=== PATIENT | female | born 1955 | race Caucasian/White ===

== ENCOUNTER 2019-06-29 08:18 | Day surgery (SDC) | payer OTHER ==
[2019-06-29] MEDS ORDERED: Ringers Lactate 1,000 ML IV ONE (08:53)
[2019-06-29] MEDS ORDERED: MIDAZOLAM HCL 2 MG/2 ML INJ ONE ×2 (09:06→09:25)
[2019-06-29] MEDS ORDERED: FENTANYL CITR 100 MCG/2 ML ONE (09:25)
[2019-06-29] MEDS ORDERED: LIDOCAINE 1% MPF 5 ML VIAL ONE (09:25)
[2019-06-29] MEDS ORDERED: propofoL 200 MG/20 ML VIAL IV ONE (09:25)
[2019-06-29] MEDS: CEFAZOLIN/SWI 1gm 1 GM/10 ML SYR ONE ×2 (09:30→09:40)
[2019-06-29] MEDS ORDERED: ONDANSETRON 4 MG/2 ML VIAL ONE (09:54)
[2019-06-29] MEDS ORDERED: KETOROLAC 30 MG/ML INJ ONE (09:54)
--- NOTE | 2019-06-29 10:03 | P.BOP ---
Preoperative diagnosis: infected back subQ mass , cellulitis, abscess Postoperative diagnosis: same Primary procedure: Excisional biopsy infected back subQ mass 6x6cm with deep abscess drainage Estimated blood loss: <10cc Specimen: mass and pus culture Findings: mass and pus Anesthesia: General Complications: None Drain(s): Other (wet to dry) Transferred to: Recovery Room Condition: Good
[2019-06-29 14:08] VITALS: TEMP 97.6
[2019-06-29 14:12] VITALS: BP 128/60; O2SAT 96
--- NOTE | 2019-06-29 15:41 | DS ---
Date of Discharge: 06/29/2019 Diagnosis: Infected back subcutaneous mass with cellulitis and abscess. Procedure: Excisional biopsy of infected back subcutaneous mass with deep abscess drainage. Disposition: Home. Activity: As tolerated. No heavy lifting. Followup: Followup in my office in 1 week. Call for appointment at [phone]. Keep the area dry for 24 hours. Tomorrow she can change the dressings. Medications: Include Tylenol No.3 q.4 hours p.r.n. pain, normal saline. Initially with prescribed B actrim, but she states she does want to take Bactrim. She is on clindamycin, she is going to finish the clindamycin and then we are going to wait for cultures. ANGEL/MICHELLE Voice ID: [id number] Report ID: [id number]
--- NOTE | 2019-06-29 15:52 | OP ---
Date of Procedure: 06/29/2019 Surgeon: Luis Armando Viera MD Preoperative Diagnoses: Infected back subcutaneous mass, cellulitis and abscess. Postoperative Diagnoses: Infected back subcutaneous mass, cellulitis and abscess. Procedure: Excisional biopsy of infected back subcutaneous mass 6 x 6 cm with deep abscess drainage. Estimated Blood Loss: Less than 10 mL. Specimens: Mass and pus culture. Findings: Mass and cavity with pus. Anesthesia: General plus local. Packing with wet-to-dry normal saline. Indications: This is the case of a 63-year-old patient, who comes to us with erythematous, tender ba ck mass with present. She has been on antibiotics for a week and it has not improved, it is getting worse, so she was taken to surgery for debridement of the area and removal of the mass and also drainage of the abscess. The benefits, alternatives, and risks were fully explained which incl ude, but are not limited to infection, bleeding, damage to adjacent structures, anesthesia complicati ons, recurrence, WI, and even . She also understands this may not relieve any symptoms. She un derstood and signed a consent. She understands she most likely will require wet-to-dry dressings nor mal saline. She understood and the family feels comfortable doing that. Description Of Procedure: Patient was brought to the operating room, placed in supine position. Ane sthesia was done without complication. Back was prepped and draped in a sterile fashion after placin g the patient in lateral decubitus position with proper protection. An incision was made in the area obviously. We immediately got a large mass with purulent discharge, so we removed the mass, underne ath we found to have cavity that was also drained. The area was debrided. The area was i rrigated. Hemostasis obtained. Local anesthesia was applied and the area was packed with wet-to-dry dressing. Patient tolerated the procedure well. Patient was sent to recovery in stable condition. ANGEL/MICHELLE Voice ID: [id number] Report ID: [id number]
== END 2019-06-29 12:06 | disposition home or self-care (01) ==
LOC: OR 08:18
PROVIDERS: ATTEND Surgery
PROC: 0JB70ZZ Excision of Back Subcutaneous Tissue and Fascia, Open Approach (ICD-10-PCS; principal; 2019-06-29 10:15)
DX: L72.0 Epidermal cyst (principal); L02.212 Cutaneous abscess of back [any part, except buttock and flank]; L03.312 Cellulitis of back [any part except buttock and flank]; I10 Essential (primary) hypertension; E78.00 Pure hypercholesterolemia, unspecified; Z80.1 Family history of malignant neoplasm of trachea, bronchus and lung; Z80.3 Family history of malignant neoplasm of breast; Z83.3 Family history of diabetes mellitus
CPT/HCPCS: 87070; 87205; 88304; 87075; 11406; J2704; J2250; J3010; J0690; J7120; J2405